=== PATIENT | male | born 1940 | race Caucasian/White ===

== ENCOUNTER 2020-12-05 07:35 | Day surgery (SDC) | payer MEDICARE, OTHER ==
[~2020-12-05 07:35] MED LIST: Bacitracin Oint 1 GM U/D Packet ONE; Bupivacaine 0.5% 50 ML MDV ONE; Lidocaine 1% with EPINEPHrine 1:100,000 50 ML MDV ONE; Propofol 200 MG/20 ML SDV ONE; Sodium Chloride 0.9% 1,000 ML IV SCH; fentaNYL 100 MCG/2 ML SDV ONE
[2020-12-05] MEDS ORDERED: Propofol 200 MG/20 ML SDV ONE ×2 (09:33→10:05)
[2020-12-05] MEDS ORDERED: Ondansetron 4 MG/2 ML SDV ONE (10:13)
[2020-12-05] MEDS ORDERED: Dexamethasone 4 MG/ML SDV ONE (10:13)
--- NOTE | 2020-12-05 11:35 | OR ---
DATE OF PROCEDURE: 12/05/2020 SURGEON: Stanley Sotomayor MD PROCEDURE: Excision of squamous cell carcinoma in situ scalp. 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 POSTOPERATIVE DIAGNOSIS: Squamous cell carcinoma in situ. 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 RISKS: Risks, benefits, alternatives, and limitations including but not limited to infection, bleeding, false positives and false negatives, requirement for reoperation due to final pathological diagnoses and other risks not listed here were explained to the patient and the family and they wished to proceed. The area of excision was marked by myself and the family preoperatively together. The patient did agree on this location also. PROCEDURE IN DETAIL: The patient was placed in supine position. An elliptical type incision was made 5.2 x 2.1 cm. This was marked first, anesthetized with 1% lidocaine and then excised. This was marked on the skin anterior, posterior, left and right, and a single stitch placed anterior, double stitch placed left. The pathology determined there was no residual squamous cell carcinoma on the margins. Therefore, the procedure was terminated. The wound was closed with multiple layers of suture including 2-0 nylon and Vicryl type sutures. This was closed with a combination of vertical mattress sutures, horizontal mattress sutures, and running sutures. The patient tolerated the procedure well. Stanley Sotomayor MD /[id number]
[2020-12-05 12:14] VITALS: BP 131/81; PULSE 76
== END 2020-12-05 12:20 | disposition home or self-care (01) ==
LOC: JP.SDS 07:35
PROVIDERS: ATTEND Surgery
DX: D04.4 Carcinoma in situ of skin of scalp and neck (principal); E11.9 Type 2 diabetes mellitus without complications; E78.00 Pure hypercholesterolemia, unspecified; I48.91 Unspecified atrial fibrillation
CPT/HCPCS: 11626; 88305; J1100; J2405; J2704; J3010; J3490; J7030

== ENCOUNTER 2021-08-12 23:26 | Emergency (ER) | payer MEDICARE, OTHER ==
[2021-08-12 23:52] VITALS: BP 112/65
[2021-08-13 01:11] VITALS: PULSE 72
== END 2021-08-13 00:50 | disposition home or self-care (01) ==
LOC: JP.ED 23:26
DX: S01.552A Open bite of oral cavity, initial encounter (principal); E78.00 Pure hypercholesterolemia, unspecified; I10 Essential (primary) hypertension; K21.9 Gastro-esophageal reflux disease without esophagitis; E10.21 Type 1 diabetes mellitus with diabetic nephropathy; I48.91 Unspecified atrial fibrillation; Z79.01 Long term (current) use of anticoagulants; Z79.82 Long term (current) use of aspirin; Z79.4 Long term (current) use of insulin; Z79.899 Other long term (current) drug therapy; W50.3XXA Accidental bite by another person, initial encounter
CPT/HCPCS: 36415; 85025; 85610; 99282; 99283

== ENCOUNTER 2022-08-12 01:07 | Emergency (ER) | payer MEDICARE ==
[2022-08-12 01:46] VITALS: BP 139/66
[2022-08-12 02:22] LABS: ESTIMATED GFR 33 mL/min (>60)
[2022-08-12 03:26] VITALS: PULSE 78
== END 2022-08-12 03:27 | disposition home or self-care (01) ==
LOC: JP.ED 01:07
DX: U07.1 COVID-19 (principal); R04.2 Hemoptysis; E78.00 Pure hypercholesterolemia, unspecified; K21.9 Gastro-esophageal reflux disease without esophagitis; I10 Essential (primary) hypertension; E11.21 Type 2 diabetes mellitus with diabetic nephropathy; M19.90 Unspecified osteoarthritis, unspecified site; Z86.16 Personal history of COVID-19; Z79.01 Long term (current) use of anticoagulants; Z79.4 Long term (current) use of insulin; Z79.82 Long term (current) use of aspirin; Z79.84 Long term (current) use of oral hypoglycemic drugs; Z79.899 Other long term (current) drug therapy
CPT/HCPCS: 36415; 80053; 83605; 84145; 85025; 85610; 99283; 99284

== ENCOUNTER 2022-10-07 14:56 | Inpatient (IN) | payer MEDICARE ==
[2022-10-07] MEDS ORDERED: Sodium Chloride 0.9% 10 ML Syringe FLUSH PRN (14:58)
[2022-10-07 15:30] LABS: BASOPHILS ABSOLUTE AUTO 0.07 K/uL (0.00-0.10); BASOPHILS PERCENT AUTO 0.4 % (0.1-1.3); EOSINOPHILS ABSOLUTE AUTO 0.04 K/uL (0.00-0.40); EOSINOPHILS PERCENT AUTO 0.2 % (0.0-5.4); HEMATOCRIT 29.3 % (38.4-49.7); HEMOGLOBIN 9.7 g/dL (12.9-16.9); IMMATURE GRAN ABSOLUTE AUTO 0.16 K/uL (0.00-0.23); IMMATURE GRAN PERCENT AUTO 0.9 % (0.0-0.7); LYMPHOCYTES ABSOLUTE AUTO 1.11 K/uL (0.8-3.3); MEAN CORPUSCULAR HEMOGLOBIN 30.4 pg (31.6-35.5); MEAN CORPUSCULAR HGB CONC 33.1 g/dL (31.6-35.5); MEAN CORPUSCULAR VOLUME 91.8 fL (81.4-99.0); MONOCYTES ABSOLUTE AUTO 1.59 K/uL (0.20-0.90); MONOCYTES PERCENT AUTO 8.7 % (3.3-12.6); NEUTROPHILS PERCENT AUTO 83.8 % (40.0-78.1); PLATELET COUNT,PLT 347 K/uL (130-375); RED BLOOD CELL COUNT 3.19 M/uL (4.14-5.76); WHITE BLOOD CELL COUNT,WBC 18.4 K/uL (3.2-11.0)
[2022-10-07 15:49] LABS: INR 2.6
[2022-10-07 15:54] LABS: BLOOD UREA NITROGEN,BUN 32 mg/dL (7-18); CALCIUM 8.8 mg/dL (8.5-10.1); CARBON DIOXIDE,CO2 23 mmol/L (21-32); CHLORIDE,CL 94 mmol/L (100-108); ESTIMATED GFR 33 mL/min (>60); GLUCOSE RANDOM 199 mg/dL (74-106); SODIUM,NA 130 mmol/L (140-148)
[2022-10-07 16:21] LABS: APPEARANCE,URINE SLIGHTLY CLOUDY (CLEAR); BILIRUBIN,URINE NEGATIVE (NEGATIVE); COLOR,URINE YELLOW (YELLOW); GLUCOSE,URINE NEGATIVE (NEGATIVE); KETONES,URINE NEGATIVE (NEGATIVE); LEUKOCYTE ESTERASE,URINE NEGATIVE (NEGATIVE); NITRITE,URINE NEGATIVE (NEGATIVE); OCCULT BLOOD,URINE NEGATIVE (NEGATIVE); PROTEIN,URINE 100 mg/dL (NEGATIVE)
[2022-10-07 16:27] LABS: AMORPHOUS SEDIMENT,URINE NOT SEEN; BACTERIA,URINE FEW; EPITHELIAL CELLS,URINE FEW; MUCUS,URINE RARE; RBC,URINE 0-5 (0-5); WBC,URINE 0-5 (0-5)
[2022-10-07] MEDS ORDERED: Acetaminophen 500 MG Tab PO ONE (16:33)
[2022-10-07] MEDS ORDERED: Piperacillin/Tazobactam 2.25 GM in Sodium Chloride 0.9% 50 ML IV ONE (16:43)
[2022-10-07 16:46] LABS: LACTIC ACID 1.9 mmol/L (0.4-2.0)
[2022-10-07] MEDS ORDERED: Sodium Chloride 0.9% 1,000 ML IV SCH (17:15)
[2022-10-07] MEDS ORDERED: Morphine 2 MG/ML SYRINGE IVPUSH PRN (19:21)
[2022-10-07] MEDS ORDERED: Bisacodyl 5 MG Tab PO PRN (19:21)
[2022-10-07] MEDS ORDERED: oxyCODONE 5 MG Tab PO PRN (19:21)
[2022-10-07] MEDS ORDERED: Ondansetron 4 MG Tab.DIS PO PRN (19:21)
[2022-10-07] MEDS ORDERED: Acetaminophen 325 MG Tab PO PRN (19:21)
[2022-10-07] MEDS ORDERED: Piperacillin/Tazobactam 2.25 GM in Sodium Chloride 0.9% 50 ML IV SCH ×2 (19:30→23:00)
[2022-10-07] MEDS ORDERED: 50% Dextrose in Water 50 ML Syringe IVPUSH PRN (19:34)
[2022-10-07] MEDS ORDERED: Non-Formulary Medication 1 Each (Dimenhydrinate [Dramamine] 50 MG Tablet) PO PRN (19:34)
[2022-10-07] MEDS ORDERED: Glucagon,Human Recombinant 1 MG Vial IM PRN (19:34)
[2022-10-07] MEDS ORDERED: Vancomycin 1 GM SDV IV SCH (20:00)
[2022-10-07] MEDS: Piperacillin/Tazobactam 2.25 GM in Sodium Chloride 0.9% 50 ML IV SCH (20:58)
[2022-10-07] MEDS: Pantoprazole 40 MG Vial IV SCH (21:13)
[2022-10-07] MEDS: Rosuvastatin 10 MG Tab PO SCH (21:13)
[2022-10-07] MEDS: Insulin Glargine,Human Rec. Analog 100 Units/ML 3 ML Pen SUBCUT SCH (21:16)
[2022-10-07] MEDS: Insulin Lispro 100 Unit/ML 3 ML KwikPen SUBCUT SCH (21:17)
[2022-10-08] MEDS: Piperacillin/Tazobactam 2.25 GM in Sodium Chloride 0.9% 50 ML IV SCH (02:17)
[2022-10-08 05:04] LABS: BASOPHILS ABSOLUTE AUTO 0.08 K/uL (0.00-0.10); BASOPHILS PERCENT AUTO 0.5 % (0.1-1.3); EOSINOPHILS ABSOLUTE AUTO 0.32 K/uL (0.00-0.40); EOSINOPHILS PERCENT AUTO 2.1 % (0.0-5.4); HEMATOCRIT 27.2 % (38.4-49.7); HEMOGLOBIN 8.7 g/dL (12.9-16.9); IMMATURE GRAN ABSOLUTE AUTO 0.11 K/uL (0.00-0.23); IMMATURE GRAN PERCENT AUTO 0.7 % (0.0-0.7); LYMPHOCYTES PERCENT AUTO 7.8 % (11.4-47.7); MEAN CORPUSCULAR HEMOGLOBIN 29.8 pg (31.6-35.5); MEAN CORPUSCULAR VOLUME 93.2 fL (81.4-99.0); MONOCYTES ABSOLUTE AUTO 1.25 K/uL (0.20-0.90); MONOCYTES PERCENT AUTO 8.1 % (3.3-12.6); NEUTROPHILS ABSOLUTE AUTO 12.42 K/uL (1.0-7.6); NEUTROPHILS PERCENT AUTO 80.8 % (40.0-78.1); PLATELET COUNT,PLT 315 K/uL (130-375); RED BLOOD CELL COUNT 2.92 M/uL (4.14-5.76); WHITE BLOOD CELL COUNT,WBC 15.4 K/uL (3.2-11.0)
[2022-10-08 05:16] LABS: CALCIUM 8.8 mg/dL (8.5-10.1); CREATININE 1.9 mg/dL (0.8-1.3); EST CRCL DRUG DOSING (CG) 32.33 mL/min; POTASSIUM,K 4.5 mmol/L (3.6-5.2)
[2022-10-08 05:32] LABS: PROTHROMBIN TIME 28.8 sec (9.2-10.6)
[2022-10-08 05:39] LABS: ANION GAP 15.5 mmol/L (5.0-14.0)
[2022-10-08] MEDS ORDERED: Vancomycin 1 GM SDV IV SCH (06:10)
[2022-10-08] MEDS: Insulin Lispro 100 Unit/ML 3 ML KwikPen SUBCUT SCH ×4 (07:34→21:47)
[2022-10-08] MEDS: Piperacillin/Tazobactam/Dext 2.25 GM in Premix Bag 1 BAG IV SCH ×3 (08:45→20:43)
[2022-10-08] MEDS: Potassium Chloride 10 MEQ Cap.ER PO SCH (08:46)
[2022-10-08] MEDS: Aspirin 81 MG Tab.EC PO SCH (08:46)
[2022-10-08] MEDS: Furosemide 40 MG Tab PO SCH (08:46)
[2022-10-08] MEDS: Ferrous Sulfate 325 MG Tab PO SCH (08:46)
[2022-10-08] MEDS: Ascorbic Acid 500 MG Tab PO SCH (08:48)
[2022-10-08] MEDS: Lisinopril 2.5 MG Tab PO SCH (08:48)
[2022-10-08] MEDS: Cholecalciferol (Vitamin D3) 25 MCG Tab PO SCH (08:49)
[2022-10-08] MEDS ORDERED: Warfarin 5 MG Tab PO SCH (09:00)
[2022-10-08] MEDS ORDERED: POTASSIUM GLUCONATE 90 MG PO SCH (09:00)
[2022-10-08] MEDS ORDERED: Warfarin 2.5 MG Tab PO SCH (13:00)
[2022-10-08] MEDS: Warfarin 2.5 MG Tab PO SCH (13:16)
[2022-10-08] MEDS: Rosuvastatin 10 MG Tab PO SCH (20:42)
[2022-10-08] MEDS: Pantoprazole 40 MG Vial IV SCH (20:42)
[2022-10-08] MEDS: Insulin Glargine,Human Rec. Analog 100 Units/ML 3 ML Pen SUBCUT SCH (21:48)
[2022-10-09] MEDS: Piperacillin/Tazobactam/Dext 2.25 GM in Premix Bag 1 BAG IV SCH ×4 (02:22→19:32)
[2022-10-09 05:32] LABS: BASOPHILS ABSOLUTE AUTO 0.07 K/uL (0.00-0.10); BASOPHILS PERCENT AUTO 0.5 % (0.1-1.3); EOSINOPHILS ABSOLUTE AUTO 0.25 K/uL (0.00-0.40); EOSINOPHILS PERCENT AUTO 1.7 % (0.0-5.4); HEMOGLOBIN 9.2 g/dL (12.9-16.9); IMMATURE GRAN ABSOLUTE AUTO 0.11 K/uL (0.00-0.23); IMMATURE GRAN PERCENT AUTO 0.8 % (0.0-0.7); LYMPHOCYTES ABSOLUTE AUTO 1.08 K/uL (0.8-3.3); LYMPHOCYTES PERCENT AUTO 7.5 % (11.4-47.7); MEAN CORPUSCULAR HEMOGLOBIN 30.1 pg (31.6-35.5); MEAN CORPUSCULAR HGB CONC 32.9 g/dL (31.6-35.5); MEAN CORPUSCULAR VOLUME 91.5 fL (81.4-99.0); MONOCYTES ABSOLUTE AUTO 1.14 K/uL (0.20-0.90); MONOCYTES PERCENT AUTO 7.9 % (3.3-12.6); NEUTROPHILS ABSOLUTE AUTO 11.83 K/uL (1.0-7.6); NEUTROPHILS PERCENT AUTO 81.6 % (40.0-78.1); PLATELET COUNT,PLT 373 K/uL (130-375); RED BLOOD CELL COUNT 3.06 M/uL (4.14-5.76); WHITE BLOOD CELL COUNT,WBC 14.5 K/uL (3.2-11.0)
[2022-10-09 05:45] LABS: CALCIUM 8.4 mg/dL (8.5-10.1); CREATININE 2.1 mg/dL (0.8-1.3); EST CRCL DRUG DOSING (CG) 29.25 mL/min; MAGNESIUM 1.8 mg/dL (1.8-2.4); POTASSIUM,K 4.3 mmol/L (3.6-5.2)
[2022-10-09 05:48] LABS: PROTHROMBIN TIME 28.1 sec (9.2-10.6)
[2022-10-09 06:03] LABS: ANION GAP 13.3 mmol/L (5.0-14.0)
[2022-10-09] MEDS: Insulin Lispro 100 Unit/ML 3 ML KwikPen SUBCUT SCH ×4 (08:33→21:09)
[2022-10-09] MEDS: Aspirin 81 MG Tab.EC PO SCH (08:34)
[2022-10-09] MEDS: Ferrous Sulfate 325 MG Tab PO SCH (08:34)
[2022-10-09] MEDS: Potassium Chloride 10 MEQ Cap.ER PO SCH (08:34)
[2022-10-09] MEDS: Cholecalciferol (Vitamin D3) 25 MCG Tab PO SCH (08:34)
[2022-10-09] MEDS: Ascorbic Acid 500 MG Tab PO SCH (08:34)
[2022-10-09] MEDS: Furosemide 40 MG Tab PO SCH (08:34)
[2022-10-09] MEDS: Lisinopril 2.5 MG Tab PO SCH (08:38)
[2022-10-09] MEDS ORDERED: Warfarin 5 MG Tab PO SCH (13:00)
[2022-10-09] MEDS: Warfarin 2.5 MG Tab PO SCH (13:17)
[2022-10-09] MEDS: Docusate Sodium 100 MG Cap PO PRN (19:39)
[2022-10-09] MEDS: Insulin Glargine,Human Rec. Analog 100 Units/ML 3 ML Pen SUBCUT SCH (21:11)
[2022-10-09] MEDS: Rosuvastatin 10 MG Tab PO SCH (21:14)
[2022-10-09] MEDS: Pantoprazole 40 MG Tab.CR PO SCH (21:14)
[2022-10-10] MEDS: Piperacillin/Tazobactam/Dext 2.25 GM in Premix Bag 1 BAG IV SCH ×4 (01:27→19:26)
[2022-10-10 06:58] LABS: CALCIUM 8.2 mg/dL (8.5-10.1); CREATININE 1.8 mg/dL (0.8-1.3); EST CRCL DRUG DOSING (CG) 34.13 mL/min; POTASSIUM,K 4.1 mmol/L (3.6-5.2)
[2022-10-10 07:01] LABS: BASOPHILS ABSOLUTE AUTO 0.06 K/uL (0.00-0.10); BASOPHILS PERCENT AUTO 0.5 % (0.1-1.3); EOSINOPHILS ABSOLUTE AUTO 0.57 K/uL (0.00-0.40); EOSINOPHILS PERCENT AUTO 5.1 % (0.0-5.4); HEMATOCRIT 25.8 % (38.4-49.7); HEMOGLOBIN 8.4 g/dL (12.9-16.9); IMMATURE GRAN ABSOLUTE AUTO 0.27 K/uL (0.00-0.23); IMMATURE GRAN PERCENT AUTO 2.4 % (0.0-0.7); LYMPHOCYTES ABSOLUTE AUTO 1.25 K/uL (0.8-3.3); LYMPHOCYTES PERCENT AUTO 11.2 % (11.4-47.7); MEAN CORPUSCULAR HEMOGLOBIN 29.7 pg (31.6-35.5); MEAN CORPUSCULAR HGB CONC 32.6 g/dL (31.6-35.5); MEAN CORPUSCULAR VOLUME 91.2 fL (81.4-99.0); MONOCYTES ABSOLUTE AUTO 0.95 K/uL (0.20-0.90); MONOCYTES PERCENT AUTO 8.5 % (3.3-12.6); NEUTROPHILS ABSOLUTE AUTO 8.03 K/uL (1.0-7.6); NEUTROPHILS PERCENT AUTO 72.3 % (40.0-78.1); PLATELET COUNT,PLT 347 K/uL (130-375); RED BLOOD CELL COUNT 2.83 M/uL (4.14-5.76); WHITE BLOOD CELL COUNT,WBC 11.1 K/uL (3.2-11.0)
[2022-10-10] MEDS: Insulin Lispro 100 Unit/ML 3 ML KwikPen SUBCUT SCH ×4 (08:21→21:13)
[2022-10-10 08:33] LABS: ANION GAP 14.1 mmol/L (5.0-14.0)
[2022-10-10 08:36] LABS: INR 2.7; PROTHROMBIN TIME 25.8 sec (9.2-10.6)
[2022-10-10] MEDS: Ferrous Sulfate 325 MG Tab PO SCH (08:39)
[2022-10-10] MEDS: Ascorbic Acid 500 MG Tab PO SCH (08:40)
[2022-10-10] MEDS: Furosemide 40 MG Tab PO SCH (08:40)
[2022-10-10] MEDS: Potassium Chloride 10 MEQ Cap.ER PO SCH (08:40)
[2022-10-10] MEDS: Aspirin 81 MG Tab.EC PO SCH (08:40)
[2022-10-10] MEDS: Lisinopril 2.5 MG Tab PO SCH (08:40)
[2022-10-10] MEDS: Cholecalciferol (Vitamin D3) 25 MCG Tab PO SCH (08:40)
[2022-10-10] MEDS: Docusate Sodium 100 MG Cap PO PRN ×2 (10:01→21:15)
[2022-10-10] MEDS: Warfarin 2.5 MG Tab PO SCH (12:33)
[2022-10-10] MEDS ORDERED: Furosemide 40 MG/4 ML VIAL IVPUSH ONE (18:00)
[2022-10-10] MEDS: Insulin Glargine,Human Rec. Analog 100 Units/ML 3 ML Pen SUBCUT SCH (21:13)
[2022-10-10] MEDS: Rosuvastatin 10 MG Tab PO SCH (21:15)
[2022-10-10] MEDS: Pantoprazole 40 MG Tab.CR PO SCH (21:15)
[2022-10-11] MEDS: Piperacillin/Tazobactam/Dext 2.25 GM in Premix Bag 1 BAG IV SCH ×4 (02:31→20:38)
[2022-10-11 05:09] LABS: BASOPHILS ABSOLUTE AUTO 0.06 K/uL (0.00-0.10); BASOPHILS PERCENT AUTO 0.6 % (0.1-1.3); EOSINOPHILS ABSOLUTE AUTO 0.61 K/uL (0.00-0.40); EOSINOPHILS PERCENT AUTO 6.3 % (0.0-5.4); HEMATOCRIT 26.6 % (38.4-49.7); HEMOGLOBIN 8.6 g/dL (12.9-16.9); IMMATURE GRAN ABSOLUTE AUTO 0.11 K/uL (0.00-0.23); IMMATURE GRAN PERCENT AUTO 1.1 % (0.0-0.7); LYMPHOCYTES ABSOLUTE AUTO 1.15 K/uL (0.8-3.3); MEAN CORPUSCULAR HEMOGLOBIN 29.6 pg (31.6-35.5); MEAN CORPUSCULAR HGB CONC 32.3 g/dL (31.6-35.5); MEAN CORPUSCULAR VOLUME 91.4 fL (81.4-99.0); MONOCYTES ABSOLUTE AUTO 0.91 K/uL (0.20-0.90); MONOCYTES PERCENT AUTO 9.5 % (3.3-12.6); NEUTROPHILS ABSOLUTE AUTO 6.78 K/uL (1.0-7.6); NEUTROPHILS PERCENT AUTO 70.5 % (40.0-78.1); PLATELET COUNT,PLT 401 K/uL (130-375); RED BLOOD CELL COUNT 2.91 M/uL (4.14-5.76); WHITE BLOOD CELL COUNT,WBC 9.6 K/uL (3.2-11.0)
[2022-10-11 05:26] LABS: PROTHROMBIN TIME 28.3 sec (9.2-10.6)
[2022-10-11 05:30] LABS: CALCIUM 8.4 mg/dL (8.5-10.1); CREATININE 1.9 mg/dL (0.8-1.3); EST CRCL DRUG DOSING (CG) 32.33 mL/min; POTASSIUM,K 4.3 mmol/L (3.6-5.2); VANCOMYCIN RANDOM 19.2 ug/mL (0.0-50.0)
[2022-10-11 05:38] LABS: ANION GAP 14.3 mmol/L (5.0-14.0)
[2022-10-11] MEDS: Insulin Lispro 100 Unit/ML 3 ML KwikPen SUBCUT SCH ×4 (07:34→21:33)
[2022-10-11] MEDS: Cholecalciferol (Vitamin D3) 25 MCG Tab PO SCH (08:19)
[2022-10-11] MEDS: Aspirin 81 MG Tab.EC PO SCH (08:20)
[2022-10-11] MEDS: Ferrous Sulfate 325 MG Tab PO SCH (08:20)
[2022-10-11] MEDS: Ascorbic Acid 500 MG Tab PO SCH (08:20)
[2022-10-11] MEDS: Lisinopril 2.5 MG Tab PO SCH (08:20)
[2022-10-11] MEDS: Potassium Chloride 10 MEQ Cap.ER PO SCH (08:20)
[2022-10-11] MEDS: Docusate Sodium 100 MG Cap PO PRN (08:27)
[2022-10-11] MEDS ORDERED: Furosemide 20 MG/2 ML VIAL IVPUSH ONE ×2 (08:30→18:00)
[2022-10-11] MEDS ORDERED: Sodium Phosphate,Monobasic/Sodium Phosphate,Dibasic Enema 133 ML Bottle RECTAL PRN (10:19)
[2022-10-11] MEDS ORDERED: Polyethylene Glycol 3350 Powder 17 GM Packet PO ONE (11:00)
[2022-10-11] MEDS ORDERED: Bisacodyl 10 MG Supp RECTAL ONE (11:00)
[2022-10-11] MEDS: Warfarin 2.5 MG Tab PO SCH (13:40)
[2022-10-11] MEDS: Pantoprazole 40 MG Tab.CR PO SCH (20:37)
[2022-10-11] MEDS: Rosuvastatin 10 MG Tab PO SCH (20:38)
[2022-10-11] MEDS: Insulin Glargine,Human Rec. Analog 100 Units/ML 3 ML Pen SUBCUT SCH (21:32)
[2022-10-12] MEDS: Piperacillin/Tazobactam/Dext 2.25 GM in Premix Bag 1 BAG IV SCH ×4 (01:15→20:43)
[2022-10-12 06:04] LABS: CALCIUM 8.4 mg/dL (8.5-10.1); CREATININE 1.9 mg/dL (0.8-1.3); EST CRCL DRUG DOSING (CG) 32.33 mL/min; POTASSIUM,K 3.9 mmol/L (3.6-5.2)
[2022-10-12 06:05] LABS: ANION GAP 12.9 mmol/L (5.0-14.0)
[2022-10-12 06:06] LABS: INR 2.9; PROTHROMBIN TIME 27.1 sec (9.2-10.6)
[2022-10-12] MEDS ORDERED: Furosemide 40 MG/4 ML VIAL IVPUSH ONE ×2 (08:06→18:00)
[2022-10-12] MEDS ORDERED: Furosemide 40 MG, Furosemide 20 MG IV ONE ×2 (08:15)
[2022-10-12] MEDS: Insulin Lispro 100 Unit/ML 3 ML KwikPen SUBCUT SCH ×4 (09:01→20:43)
[2022-10-12] MEDS: Ascorbic Acid 500 MG Tab PO SCH (09:02)
[2022-10-12] MEDS: Ferrous Sulfate 325 MG Tab PO SCH (09:02)
[2022-10-12] MEDS: Potassium Chloride 10 MEQ Cap.ER PO SCH (09:02)
[2022-10-12] MEDS: Aspirin 81 MG Tab.EC PO SCH (09:03)
[2022-10-12] MEDS: Lisinopril 2.5 MG Tab PO SCH (09:03)
[2022-10-12] MEDS: Cholecalciferol (Vitamin D3) 25 MCG Tab PO SCH (09:03)
[2022-10-12] MEDS: Warfarin 2.5 MG Tab PO SCH (13:25)
[2022-10-12] MEDS: Rosuvastatin 10 MG Tab PO SCH (20:45)
[2022-10-12] MEDS: Pantoprazole 40 MG Tab.CR PO SCH (20:46)
[2022-10-12] MEDS: Insulin Glargine,Human Rec. Analog 100 Units/ML 3 ML Pen SUBCUT SCH (20:46)
[2022-10-13] MEDS: Piperacillin/Tazobactam/Dext 2.25 GM in Premix Bag 1 BAG IV SCH ×2 (02:19→08:33)
[2022-10-13 05:56] LABS: CALCIUM 8.5 mg/dL (8.5-10.1); CREATININE 1.9 mg/dL (0.8-1.3); EST CRCL DRUG DOSING (CG) 32.33 mL/min; POTASSIUM,K 4.2 mmol/L (3.6-5.2)
[2022-10-13 05:58] LABS: INR 2.8; PROTHROMBIN TIME 26.9 sec (9.2-10.6)
[2022-10-13 06:05] LABS: ANION GAP 14.2 mmol/L (5.0-14.0)
[2022-10-13] MEDS ORDERED: Furosemide 100 MG/10 ML SDV IVPUSH ONE (08:15)
[2022-10-13] MEDS: Cholecalciferol (Vitamin D3) 25 MCG Tab PO SCH (08:25)
[2022-10-13] MEDS: Potassium Chloride 10 MEQ Cap.ER PO SCH (08:25)
[2022-10-13] MEDS: Lisinopril 2.5 MG Tab PO SCH (08:25)
[2022-10-13] MEDS: Ascorbic Acid 500 MG Tab PO SCH (08:25)
[2022-10-13] MEDS: Ferrous Sulfate 325 MG Tab PO SCH (08:25)
[2022-10-13] MEDS: Aspirin 81 MG Tab.EC PO SCH (08:25)
[2022-10-13] MEDS: Insulin Lispro 100 Unit/ML 3 ML KwikPen SUBCUT SCH ×4 (08:36→21:13)
[2022-10-13] MEDS: Amoxicillin/Clavulanate K 875-125 MG Tab PO SCH ×2 (10:54→20:20)
[2022-10-13] MEDS: Warfarin 2.5 MG Tab PO SCH (12:23)
[2022-10-13] MEDS: Rosuvastatin 10 MG Tab PO SCH (20:21)
[2022-10-13] MEDS: Pantoprazole 40 MG Tab.CR PO SCH (20:21)
[2022-10-13] MEDS: Insulin Glargine,Human Rec. Analog 100 Units/ML 3 ML Pen SUBCUT SCH (21:13)
[2022-10-14 05:19] LABS: INR 2.5; PROTHROMBIN TIME 23.7 sec (9.2-10.6)
[2022-10-14] MEDS: Insulin Lispro 100 Unit/ML 3 ML KwikPen SUBCUT SCH ×2 (07:47→11:37)
[2022-10-14] MEDS: Aspirin 81 MG Tab.EC PO SCH (08:02)
[2022-10-14] MEDS: Potassium Chloride 10 MEQ Cap.ER PO SCH (08:02)
[2022-10-14] MEDS: Cholecalciferol (Vitamin D3) 25 MCG Tab PO SCH (08:03)
[2022-10-14] MEDS: Amoxicillin/Clavulanate K 875-125 MG Tab PO SCH (08:03)
[2022-10-14] MEDS: Ascorbic Acid 500 MG Tab PO SCH (08:03)
[2022-10-14] MEDS: Ferrous Sulfate 325 MG Tab PO SCH (08:03)
[2022-10-14] MEDS: Lisinopril 2.5 MG Tab PO SCH (08:04)
[2022-10-14] MEDS ORDERED: Furosemide 40 MG Tab PO SCH (09:00)
[2022-10-14 11:35] VITALS: BP 133/65; PULSE 80
[2022-10-14] MEDS: Warfarin 2.5 MG Tab PO SCH (12:56)
== END 2022-10-14 14:45 | disposition home or self-care (01) | DRG 637 ==
LOC: JP.ED 14:56 → JP.MS 19:12
PROVIDERS: ADMIT Internal Medicine; ATTEND Hospitalist
DX: E11.628 Type 2 diabetes mellitus with other skin complications (principal); U07.1 COVID-19; L03.115 Cellulitis of right lower limb; L97.419 Non-pressure chronic ulcer of right heel and midfoot with unspecified severity; I48.20 Chronic atrial fibrillation, unspecified; E11.621 Type 2 diabetes mellitus with foot ulcer; R41.82 Altered mental status, unspecified; I48.91 Unspecified atrial fibrillation; E78.5 Hyperlipidemia, unspecified; N18.32 Chronic kidney disease, stage 3b; E11.22 Type 2 diabetes mellitus with diabetic chronic kidney disease; I12.9 Hypertensive chronic kidney disease with stage 1 through stage 4 chronic kidney disease, or unspecified chronic kidney disease; K21.9 Gastro-esophageal reflux disease without esophagitis; E78.00 Pure hypercholesterolemia, unspecified; D63.1 Anemia in chronic kidney disease; Z79.82 Long term (current) use of aspirin; Z79.01 Long term (current) use of anticoagulants; Z79.84 Long term (current) use of oral hypoglycemic drugs; Z79.4 Long term (current) use of insulin; Z98.890 Other specified postprocedural states; Z89.021 Acquired absence of right finger(s); Z86.16 Personal history of COVID-19; Z79.899 Other long term (current) drug therapy
CPT/HCPCS: 36415; 70450 ×2; 71045 ×2; 80048; 81001; 82947; 83605; 84484 ×2; 85025; 85610; 85730; 87040 ×2; 87086; 93005; 96365; 96366; 96368; 99285; A9270; J3370; J7030; J7050; U0002; 80202; 83735; 92610-GN; 93010; 97110-GP; 97116-GP; 97161-GP; 97530-GP; 99223; 99232; 99233; 99238; C9113; J1815; J1815-GY; J1940; J2543; J3490

== ENCOUNTER 2023-01-10 07:27 | Inpatient (IN) | payer MEDICARE ==
[~2023-01-10 07:27] MED LIST changes: -Bacitracin Oint 1 GM U/D Packet ONE; -Bupivacaine 0.5% 50 ML MDV ONE; -Lidocaine 1% with EPINEPHrine 1:100,000 50 ML MDV ONE; +Midazolam 1 MG/ML 2 ML SDV ONE; -Sodium Chloride 0.9% 1,000 ML IV SCH
[2023-01-10] MEDS ORDERED: Scopolamine 1.5 MG Transdermal Patch TOP SCH (08:00)
[2023-01-10] MEDS ORDERED: Naloxone 0.4 MG/ML SDV IVPUSH PRN (08:00)
[2023-01-10] MEDS: Sodium Chloride 0.9% 1,000 ML IV SCH ×2 (08:15→14:18)
[2023-01-10] MEDS ORDERED: metroNIDAZOLE/Normal Saline 500 MG in Premix Bag 1 BAG IV ONE (09:00)
[2023-01-10] MEDS ORDERED: ceFAZolin 2 GM in Premix Bag 1 BAG IV ONE (09:00)
[2023-01-10] MEDS ORDERED: fentaNYL 100 MCG/2 ML SDV ONE (09:46)
[2023-01-10] MEDS ORDERED: Dexamethasone 4 MG/ML SDV ONE (09:57)
[2023-01-10] MEDS ORDERED: Ondansetron 4 MG/2 ML SDV ONE (09:57)
[2023-01-10] MEDS ORDERED: Propofol 200 MG/20 ML SDV ONE (10:44)
[2023-01-10] MEDS ORDERED: Bacitracin Oint 28.35 GM Tube ONE (10:57)
[2023-01-10] MEDS ORDERED: Acetaminophen 325 MG Tab PO PRN (11:14)
[2023-01-10] MEDS ORDERED: Acetaminophen/HYDROcodone 325-10 MG Tab PO PRN (11:14)
[2023-01-10] MEDS ORDERED: Zolpidem 5 MG Tab PO PRN (11:14)
[2023-01-10] MEDS ORDERED: diphenhydrAMINE 50 MG/ML SDV IVPUSH PRN ×2 (11:14→15:15)
[2023-01-10] MEDS ORDERED: Benzocaine/Cetylpyridinium/Menthol Lozenge MUCMEM PRN (11:14)
[2023-01-10] MEDS ORDERED: Ketorolac 30 MG/ML SDV IM SCH (11:15)
[2023-01-10] MEDS: fentaNYL 2,500 MCG in Sodium Chloride 0.9% 200 ML EPIDUR SCH (12:30)
[2023-01-10] MEDS: SCOPOLAMINE PATCH CHECK TOP SCH (12:32)
[2023-01-10] MEDS ORDERED: Naloxone 0.4 MG/ML SDV IV PRN (15:15)
[2023-01-10] MEDS ORDERED: Meperidine PF 100 MG/ML Syringe IM PRN (16:02)
[2023-01-10] MEDS: Insulin Lispro 100 Unit/ML 3 ML KwikPen SUBCUT SCH ×2 (16:55→21:06)
[2023-01-11] MEDS ORDERED: Sodium Chloride 0.9% 250 ML IV SCH (00:15)
[2023-01-11] MEDS ORDERED: Sodium Chloride 0.9% 250 ML IV ONE ×2 (00:33→02:58)
[2023-01-11] MEDS: Sodium Chloride 0.9% 1,000 ML IV SCH ×2 (00:40→04:13)
[2023-01-11 04:24] LABS: BASOPHILS PERCENT AUTO 0.2 % (0.1-1.3); EOSINOPHILS PERCENT AUTO 0.1 % (0.0-5.4); HEMATOCRIT 22.3 % (38.4-49.7); IMMATURE GRAN ABSOLUTE AUTO 0.06 K/uL (0.00-0.23); IMMATURE GRAN PERCENT AUTO 0.6 % (0.0-0.7); LYMPHOCYTES ABSOLUTE AUTO 1.13 K/uL (0.8-3.3); LYMPHOCYTES PERCENT AUTO 10.4 % (11.4-47.7); MEAN CORPUSCULAR HEMOGLOBIN 29.2 pg (31.6-35.5); MEAN CORPUSCULAR HGB CONC 30.9 g/dL (31.6-35.5); MEAN CORPUSCULAR VOLUME 94.5 fL (81.4-99.0); MONOCYTES ABSOLUTE AUTO 1.23 K/uL (0.20-0.90); MONOCYTES PERCENT AUTO 11.3 % (3.3-12.6); NEUTROPHILS ABSOLUTE AUTO 8.41 K/uL (1.0-7.6); NEUTROPHILS PERCENT AUTO 77.4 % (40.0-78.1); PLATELET COUNT,PLT 239 K/uL (130-375); RED BLOOD CELL COUNT 2.36 M/uL (4.14-5.76); WHITE BLOOD CELL COUNT,WBC 10.9 K/uL (3.2-11.0)
[2023-01-11 04:42] LABS: CALCIUM 7.6 mg/dL (8.5-10.1); CREATININE 1.6 mg/dL (0.8-1.3); EST CRCL DRUG DOSING (CG) 38.84 mL/min; POTASSIUM,K 5.1 mmol/L (3.6-5.2)
[2023-01-11 04:47] LABS: ANION GAP 14.1 mmol/L (5.0-14.0); BASOPHILS ABSOLUTE AUTO 0.02 K/uL (0.00-0.10); EOSINOPHILS ABSOLUTE AUTO 0.01 K/uL (0.00-0.40); HEMOGLOBIN 6.9 g/dL (12.9-16.9)
[2023-01-11] MEDS: Insulin Lispro 100 Unit/ML 3 ML KwikPen SUBCUT SCH ×4 (07:31→20:58)
[2023-01-11] MEDS: Pantoprazole 40 MG Tab.CR PO SCH (07:58)
[2023-01-11] MEDS ORDERED: Piperacillin/Tazobactam 3.375 GM in Sodium Chloride 0.9% 50 ML IV SCH (08:00)
[2023-01-11] MEDS: SCOPOLAMINE PATCH CHECK TOP SCH (08:03)
[2023-01-11] MEDS ORDERED: Enoxaparin 40 MG/0.4 ML Syringe SUBCUT SCH (09:00)
[2023-01-11] MEDS: Piperacillin/Tazobactam/Dext 3.375 GM in Premix Bag 1 BAG IV SCH ×3 (09:51→19:32)
[2023-01-11] MEDS: fentaNYL 2,500 MCG in Sodium Chloride 0.9% 200 ML EPIDUR SCH (16:20)
[2023-01-11] MEDS ORDERED: Non-Formulary Medication 1 Each (Metformin [Glucophage Xr] 500 MG Tab.Er) PO SCH (16:30)
[2023-01-11] MEDS: Sodium Chloride 0.9% 1,000 ML with Naloxone 0.4 MG IV SCH ×2 (17:54)
[2023-01-11] MEDS: Rosuvastatin 10 MG Tab PO SCH (20:51)
[2023-01-11] MEDS: Insulin Glargine,Human Rec. Analog 100 Units/ML 3 ML Pen SUBCUT SCH (20:58)
[2023-01-11] MEDS ORDERED: Dimethicone 20%/Zinc Oxide 25% 56 GM Spray Bottle TOP PRN (21:53)
[2023-01-12] MEDS: Piperacillin/Tazobactam/Dext 3.375 GM in Premix Bag 1 BAG IV SCH ×4 (01:19→20:17)
[2023-01-12 04:51] LABS: BASOPHILS ABSOLUTE AUTO 0.05 K/uL (0.00-0.10); BASOPHILS PERCENT AUTO 0.6 % (0.1-1.3); EOSINOPHILS ABSOLUTE AUTO 0.21 K/uL (0.00-0.40); EOSINOPHILS PERCENT AUTO 2.4 % (0.0-5.4); IMMATURE GRAN ABSOLUTE AUTO 0.06 K/uL (0.00-0.23); IMMATURE GRAN PERCENT AUTO 0.7 % (0.0-0.7); LYMPHOCYTES ABSOLUTE AUTO 1.85 K/uL (0.8-3.3); LYMPHOCYTES PERCENT AUTO 21.2 % (11.4-47.7); MEAN CORPUSCULAR HEMOGLOBIN 29.3 pg (31.6-35.5); MEAN CORPUSCULAR VOLUME 91.6 fL (81.4-99.0); MONOCYTES ABSOLUTE AUTO 1.26 K/uL (0.20-0.90); MONOCYTES PERCENT AUTO 14.5 % (3.3-12.6); NEUTROPHILS ABSOLUTE AUTO 5.28 K/uL (1.0-7.6); NEUTROPHILS PERCENT AUTO 60.6 % (40.0-78.1); PLATELET COUNT,PLT 192 K/uL (130-375); RED BLOOD CELL COUNT 2.73 M/uL (4.14-5.76); WHITE BLOOD CELL COUNT,WBC 8.7 K/uL (3.2-11.0)
[2023-01-12 05:07] LABS: CALCIUM 7.7 mg/dL (8.5-10.1); CREATININE 1.9 mg/dL (0.8-1.3); EST CRCL DRUG DOSING (CG) 32.55 mL/min; POTASSIUM,K 4.8 mmol/L (3.6-5.2)
[2023-01-12 05:11] LABS: ANION GAP 11.8 mmol/L (5.0-14.0)
[2023-01-12] MEDS: Sodium Chloride 0.9% 1,000 ML with Naloxone 0.4 MG IV SCH ×2 (08:57)
[2023-01-12] MEDS: Insulin Lispro 100 Unit/ML 3 ML KwikPen SUBCUT SCH ×4 (09:04→21:43)
[2023-01-12] MEDS: Aspirin 81 MG Tab.EC PO SCH (09:06)
[2023-01-12] MEDS: Pantoprazole 40 MG Tab.CR PO SCH (09:06)
[2023-01-12] MEDS: SCOPOLAMINE PATCH CHECK TOP SCH (09:36)
[2023-01-12] MEDS ORDERED: Furosemide 40 MG Tab PO ONE (12:00)
[2023-01-12] MEDS: Bisacodyl 5 MG Tab PO PRN (16:50)
[2023-01-12] MEDS: Docusate Sodium 100 MG Cap PO PRN (16:50)
[2023-01-12] MEDS: NALOXONE IV SCH ×2 (18:46)
[2023-01-12] MEDS: SODIUM CHLORIDE 0.9% IV SCH ×2 (18:46)
[2023-01-12 19:37] LABS: BASOPHILS ABSOLUTE AUTO 0.05 K/uL (0.00-0.10); BASOPHILS PERCENT AUTO 0.4 % (0.1-1.3); EOSINOPHILS ABSOLUTE AUTO 0.17 K/uL (0.00-0.40); EOSINOPHILS PERCENT AUTO 1.3 % (0.0-5.4); HEMATOCRIT 29.8 % (38.4-49.7); HEMOGLOBIN 9.7 g/dL (12.9-16.9); IMMATURE GRAN ABSOLUTE AUTO 0.06 K/uL (0.00-0.23); IMMATURE GRAN PERCENT AUTO 0.5 % (0.0-0.7); LYMPHOCYTES ABSOLUTE AUTO 0.98 K/uL (0.8-3.3); LYMPHOCYTES PERCENT AUTO 7.6 % (11.4-47.7); MEAN CORPUSCULAR HEMOGLOBIN 29.3 pg (31.6-35.5); MEAN CORPUSCULAR HGB CONC 32.6 g/dL (31.6-35.5); MONOCYTES ABSOLUTE AUTO 0.91 K/uL (0.20-0.90); MONOCYTES PERCENT AUTO 7.1 % (3.3-12.6); NEUTROPHILS ABSOLUTE AUTO 10.65 K/uL (1.0-7.6); NEUTROPHILS PERCENT AUTO 83.1 % (40.0-78.1); PLATELET COUNT,PLT 216 K/uL (130-375); RED BLOOD CELL COUNT 3.31 M/uL (4.14-5.76); WHITE BLOOD CELL COUNT,WBC 12.8 K/uL (3.2-11.0)
[2023-01-12 19:54] LABS: APPEARANCE,URINE CLOUDY (CLEAR); BILIRUBIN,URINE NEGATIVE (NEGATIVE); COLOR,URINE YELLOW (YELLOW); GLUCOSE,URINE NEGATIVE (NEGATIVE); KETONES,URINE NEGATIVE (NEGATIVE); LEUKOCYTE ESTERASE,URINE SMALL (NEGATIVE); NITRITE,URINE NEGATIVE (NEGATIVE); OCCULT BLOOD,URINE LARGE (NEGATIVE); PH,URINE 5.5 (5.0-8.0); PROTEIN,URINE 100 mg/dL (NEGATIVE); UROBILINOGEN,URINE 0.2 EU/dL (0.2-1.0)
[2023-01-12 20:02] LABS: AMORPHOUS SEDIMENT,URINE MODERATE; BACTERIA,URINE MODERATE; EPITHELIAL CELLS,URINE FEW; MUCUS,URINE FEW; RBC,URINE 40-50 (0-5)
[2023-01-12] MEDS: Linezolid 600 MG in Premix Bag 1 BAG IV SCH (21:05)
[2023-01-12] MEDS: Insulin Glargine,Human Rec. Analog 100 Units/ML 3 ML Pen SUBCUT SCH (21:44)
[2023-01-12] MEDS: Rosuvastatin 10 MG Tab PO SCH (21:46)
[2023-01-12] MEDS: Tamsulosin 0.4 MG Cap.ER PO SCH (21:46)
[2023-01-12] MEDS: Levofloxacin/Dextrose 5%-Water 750 MG in Premix Bag 1 BAG IV SCH (22:44)
[2023-01-13] MEDS: fentaNYL 2,500 MCG in Sodium Chloride 0.9% 200 ML EPIDUR SCH (00:44)
[2023-01-13] MEDS: Piperacillin/Tazobactam/Dext 3.375 GM in Premix Bag 1 BAG IV SCH ×4 (01:35→20:27)
[2023-01-13 04:52] LABS: BASOPHILS ABSOLUTE AUTO 0.06 K/uL (0.00-0.10); BASOPHILS PERCENT AUTO 0.4 % (0.1-1.3); EOSINOPHILS PERCENT AUTO 0.7 % (0.0-5.4); HEMATOCRIT 27.3 % (38.4-49.7); HEMOGLOBIN 8.9 g/dL (12.9-16.9); IMMATURE GRAN ABSOLUTE AUTO 0.09 K/uL (0.00-0.23); IMMATURE GRAN PERCENT AUTO 0.6 % (0.0-0.7); LYMPHOCYTES ABSOLUTE AUTO 1.33 K/uL (0.8-3.3); LYMPHOCYTES PERCENT AUTO 9.1 % (11.4-47.7); MEAN CORPUSCULAR HEMOGLOBIN 29.4 pg (31.6-35.5); MEAN CORPUSCULAR HGB CONC 32.6 g/dL (31.6-35.5); MEAN CORPUSCULAR VOLUME 90.1 fL (81.4-99.0); MONOCYTES ABSOLUTE AUTO 1.23 K/uL (0.20-0.90); MONOCYTES PERCENT AUTO 8.4 % (3.3-12.6); NEUTROPHILS ABSOLUTE AUTO 11.84 K/uL (1.0-7.6); NEUTROPHILS PERCENT AUTO 80.8 % (40.0-78.1); PLATELET COUNT,PLT 181 K/uL (130-375); RED BLOOD CELL COUNT 3.03 M/uL (4.14-5.76); WHITE BLOOD CELL COUNT,WBC 14.7 K/uL (3.2-11.0)
[2023-01-13 05:22] LABS: A/G RATIO 0.5 (1.2-2.2); ALANINE AMINOTRANSFERASE,ALT 30 U/L (12-78); ALBUMIN 2.2 g/dL (3.4-5.0); ALKALINE PHOSPHATASE 104 U/L (46-116); ASPARTATE AMNIOTRANSFERASE,AST 42 U/L (15-37); BILIRUBIN TOTAL 0.7 mg/dL (0.2-1.0); BLOOD UREA NITROGEN,BUN 37 mg/dL (7-18); CALCIUM 7.6 mg/dL (8.5-10.1); CARBON DIOXIDE,CO2 21 mmol/L (21-32); CHLORIDE,CL 101 mmol/L (100-108); CREATININE 1.8 mg/dL (0.8-1.3); EST CRCL DRUG DOSING (CG) 34.36 mL/min; ESTIMATED GFR 37 mL/min (>60); GLUCOSE RANDOM 150 mg/dL (74-106); MAGNESIUM 1.6 mg/dL (1.8-2.4); PHOSPHORUS 3.6 mg/dL (2.5-4.9); POTASSIUM,K 4.5 mmol/L (3.6-5.2); PRO B-TYPE NATRIUR PEPT,BNPPRO 6491 pg/mL (5-450); PROTEIN TOTAL,TP 6.4 g/dL (6.4-8.2); SODIUM,NA 131 mmol/L (140-148)
[2023-01-13 05:28] LABS: ANION GAP 13.5 mmol/L (5.0-14.0)
[2023-01-13] MEDS: Insulin Lispro 100 Unit/ML 3 ML KwikPen SUBCUT SCH ×4 (07:42→21:02)
[2023-01-13] MEDS: Pantoprazole 40 MG Tab.CR PO SCH (07:52)
[2023-01-13] MEDS ORDERED: fentaNYL/Normal Saline 600 MCG/30 ML PCA Vial IV PRN (09:00)
[2023-01-13] MEDS ORDERED: Naloxone 0.4 MG/ML SDV IV PRN (09:00)
[2023-01-13] MEDS ORDERED: Lactated Ringers 1,000 ML IV SCH (09:00)
[2023-01-13] MEDS: Linezolid 600 MG in Premix Bag 1 BAG IV SCH ×2 (09:33→20:18)
[2023-01-13] MEDS: Ondansetron 4 MG/2 ML SDV IVPUSH PRN (09:45)
[2023-01-13] MEDS ORDERED: Furosemide 20 MG/2 ML VIAL IVPUSH ONE (10:00)
[2023-01-13] MEDS: SCOPOLAMINE PATCH CHECK TOP SCH (10:01)
[2023-01-13] MEDS: Furosemide 40 MG Tab PO SCH (10:01)
[2023-01-13] MEDS: Aspirin 81 MG Tab.EC PO SCH (10:01)
[2023-01-13] MEDS: Fluconazole/Normal Saline 200 MG in Premix Bag 1 BAG IV SCH (10:03)
[2023-01-13] MEDS: Azithromycin 125 MG in Sodium Chloride 0.9% 100 ML IV SCH ×2 (11:24→23:26)
[2023-01-13] MEDS: Scopolamine 1.5 MG Transdermal Patch TRDERM SCH (11:27)
[2023-01-13] MEDS: SODIUM CHLORIDE 0.9% IV SCH ×2 (13:17)
[2023-01-13] MEDS: NALOXONE IV SCH ×2 (13:17)
[2023-01-13] MEDS: Rosuvastatin 10 MG Tab PO SCH (20:30)
[2023-01-13] MEDS: Tamsulosin 0.4 MG Cap.ER PO SCH (20:30)
[2023-01-13] MEDS: Insulin Glargine,Human Rec. Analog 100 Units/ML 3 ML Pen SUBCUT SCH (21:02)
[2023-01-14] MEDS: Piperacillin/Tazobactam/Dext 3.375 GM in Premix Bag 1 BAG IV SCH ×4 (01:53→20:42)
[2023-01-14 04:31] LABS: BASOPHILS ABSOLUTE AUTO 0.03 K/uL (0.00-0.10); BASOPHILS PERCENT AUTO 0.3 % (0.1-1.3); EOSINOPHILS ABSOLUTE AUTO 0.13 K/uL (0.00-0.40); EOSINOPHILS PERCENT AUTO 1.5 % (0.0-5.4); HEMATOCRIT 26.8 % (38.4-49.7); HEMOGLOBIN 8.7 g/dL (12.9-16.9); IMMATURE GRAN ABSOLUTE AUTO 0.04 K/uL (0.00-0.23); IMMATURE GRAN PERCENT AUTO 0.5 % (0.0-0.7); LYMPHOCYTES ABSOLUTE AUTO 1.01 K/uL (0.8-3.3); LYMPHOCYTES PERCENT AUTO 11.4 % (11.4-47.7); MEAN CORPUSCULAR HEMOGLOBIN 28.8 pg (31.6-35.5); MEAN CORPUSCULAR HGB CONC 32.5 g/dL (31.6-35.5); MEAN CORPUSCULAR VOLUME 88.7 fL (81.4-99.0); MONOCYTES ABSOLUTE AUTO 0.91 K/uL (0.20-0.90); MONOCYTES PERCENT AUTO 10.3 % (3.3-12.6); NEUTROPHILS ABSOLUTE AUTO 6.72 K/uL (1.0-7.6); PLATELET COUNT,PLT 181 K/uL (130-375); RED BLOOD CELL COUNT 3.02 M/uL (4.14-5.76); WHITE BLOOD CELL COUNT,WBC 8.8 K/uL (3.2-11.0)
[2023-01-14 04:56] LABS: A/G RATIO 0.5 (1.2-2.2); ALANINE AMINOTRANSFERASE,ALT 20 U/L (12-78); ALBUMIN 2.1 g/dL (3.4-5.0); ALKALINE PHOSPHATASE 86 U/L (46-116); ASPARTATE AMNIOTRANSFERASE,AST 24 U/L (15-37); BILIRUBIN TOTAL 0.4 mg/dL (0.2-1.0); BLOOD UREA NITROGEN,BUN 33 mg/dL (7-18); CALCIUM 8.1 mg/dL (8.5-10.1); CARBON DIOXIDE,CO2 23 mmol/L (21-32); CHLORIDE,CL 101 mmol/L (100-108); CREATININE 1.6 mg/dL (0.8-1.3); EST CRCL DRUG DOSING (CG) 38.65 mL/min; ESTIMATED GFR 42 mL/min (>60); GLUCOSE RANDOM 122 mg/dL (74-106); MAGNESIUM 1.6 mg/dL (1.8-2.4); PHOSPHORUS 3.8 mg/dL (2.5-4.9); POTASSIUM,K 3.9 mmol/L (3.6-5.2); PRO B-TYPE NATRIUR PEPT,BNPPRO 7104 pg/mL (5-450); PROTEIN TOTAL,TP 6.2 g/dL (6.4-8.2); SODIUM,NA 133 mmol/L (140-148)
[2023-01-14 05:08] LABS: ANION GAP 12.9 mmol/L (5.0-14.0)
[2023-01-14] MEDS: Pantoprazole 40 MG Tab.CR PO SCH (07:28)
[2023-01-14] MEDS: Bisacodyl 5 MG Tab PO PRN (07:43)
[2023-01-14] MEDS: Insulin Lispro 100 Unit/ML 3 ML KwikPen SUBCUT SCH ×4 (08:12→21:25)
[2023-01-14] MEDS: Linezolid 600 MG in Premix Bag 1 BAG IV SCH ×2 (08:47→19:38)
[2023-01-14] MEDS: Aspirin 81 MG Tab.EC PO SCH (08:50)
[2023-01-14] MEDS: Furosemide 40 MG Tab PO SCH (08:50)
[2023-01-14] MEDS: SCOPOLAMINE PATCH CHECK TOP SCH (08:52)
[2023-01-14] MEDS: Fluconazole/Normal Saline 200 MG in Premix Bag 1 BAG IV SCH (10:04)
[2023-01-14] MEDS ORDERED: Acetaminophen/HYDROcodone 325-5 MG Tab PO PRN (10:17)
[2023-01-14] MEDS: Azithromycin 125 MG in Sodium Chloride 0.9% 100 ML IV SCH ×2 (11:17→23:00)
[2023-01-14] MEDS: Magnesium Hydroxide 400 MG/5 ML Susp 30 ML Cup PO SCH ×2 (11:27→20:44)
[2023-01-14] MEDS ORDERED: Lactulose Soln 10 GM/15 ML 15 ML UD Cup PO ONE (16:00)
[2023-01-14] MEDS: Rosuvastatin 10 MG Tab PO SCH (20:44)
[2023-01-14] MEDS: Tamsulosin 0.4 MG Cap.ER PO SCH (20:44)
[2023-01-14] MEDS: Levofloxacin/Dextrose 5%-Water 750 MG in Premix Bag 1 BAG IV SCH (21:24)
[2023-01-14] MEDS: Insulin Glargine,Human Rec. Analog 100 Units/ML 3 ML Pen SUBCUT SCH (21:25)
[2023-01-14] MEDS: Ondansetron 4 MG/2 ML SDV IVPUSH PRN (23:38)
[2023-01-15] MEDS: Piperacillin/Tazobactam/Dext 3.375 GM in Premix Bag 1 BAG IV SCH ×2 (02:51→08:17)
[2023-01-15] MEDS: Ondansetron 4 MG/2 ML SDV IVPUSH PRN ×2 (04:29→10:26)
[2023-01-15 04:35] LABS: HEMATOCRIT 27.7 % (38.4-49.7); HEMOGLOBIN 8.9 g/dL (12.9-16.9); MEAN CORPUSCULAR HEMOGLOBIN 28.6 pg (31.6-35.5); MEAN CORPUSCULAR HGB CONC 32.1 g/dL (31.6-35.5); MEAN CORPUSCULAR VOLUME 89.1 fL (81.4-99.0); RED BLOOD CELL COUNT 3.11 M/uL (4.14-5.76); WHITE BLOOD CELL COUNT,WBC 7.6 K/uL (3.2-11.0)
[2023-01-15 04:54] LABS: CALCIUM 8.3 mg/dL (8.5-10.1); CREATININE 1.7 mg/dL (0.8-1.3); EST CRCL DRUG DOSING (CG) 36.38 mL/min
[2023-01-15] MEDS: Insulin Lispro 100 Unit/ML 3 ML KwikPen SUBCUT SCH ×4 (08:12→21:03)
[2023-01-15] MEDS: Pantoprazole 40 MG Tab.CR PO SCH (08:17)
[2023-01-15] MEDS ORDERED: Piperacillin/Tazobactam/Dext 2.25 GM in Premix Bag 1 BAG IV SCH (09:00)
[2023-01-15] MEDS: Linezolid 600 MG in Premix Bag 1 BAG IV SCH ×2 (09:05→20:56)
[2023-01-15] MEDS: Furosemide 40 MG Tab PO SCH (09:05)
[2023-01-15] MEDS: SCOPOLAMINE PATCH CHECK TOP SCH (09:05)
[2023-01-15] MEDS: Magnesium Hydroxide 400 MG/5 ML Susp 30 ML Cup PO SCH ×2 (09:05→20:54)
[2023-01-15] MEDS: Aspirin 81 MG Tab.EC PO SCH (09:06)
[2023-01-15] MEDS: Bisacodyl 5 MG Tab PO PRN (09:11)
[2023-01-15] MEDS: VERIFY SCOP PATCH SCH (10:01)
[2023-01-15] MEDS: Fluconazole/Normal Saline 200 MG in Premix Bag 1 BAG IV SCH (10:16)
[2023-01-15] MEDS: Azithromycin 125 MG in Sodium Chloride 0.9% 100 ML IV SCH ×2 (11:35→23:01)
[2023-01-15] MEDS: Piperacillin/Tazobactam/Dext 2.25 GM in Premix Bag 1 BAG IV SCH ×2 (13:42→20:52)
[2023-01-15] MEDS ORDERED: Bisacodyl 10 MG Supp RECTAL PRN (19:35)
[2023-01-15] MEDS ORDERED: Sodium Phosphate,Monobasic/Sodium Phosphate,Dibasic Enema 133 ML Bottle RECTAL PRN (19:36)
[2023-01-15] MEDS: Tamsulosin 0.4 MG Cap.ER PO SCH (20:55)
[2023-01-15] MEDS: Rosuvastatin 10 MG Tab PO SCH (20:55)
[2023-01-15] MEDS: Insulin Glargine,Human Rec. Analog 100 Units/ML 3 ML Pen SUBCUT SCH (21:01)
[2023-01-16] MEDS: Piperacillin/Tazobactam/Dext 2.25 GM in Premix Bag 1 BAG IV SCH ×2 (03:14→07:22)
[2023-01-16 05:36] LABS: HEMATOCRIT 28.7 % (38.4-49.7); HEMOGLOBIN 9.3 g/dL (12.9-16.9); MEAN CORPUSCULAR HEMOGLOBIN 29.1 pg (31.6-35.5); MEAN CORPUSCULAR HGB CONC 32.4 g/dL (31.6-35.5); MEAN CORPUSCULAR VOLUME 89.7 fL (81.4-99.0); RED BLOOD CELL COUNT 3.2 M/uL (4.14-5.76); WHITE BLOOD CELL COUNT,WBC 6.7 K/uL (3.2-11.0)
[2023-01-16 06:04] LABS: A/G RATIO 0.4 (1.2-2.2); ALANINE AMINOTRANSFERASE,ALT 33 U/L (12-78); ALBUMIN 2.2 g/dL (3.4-5.0); ALKALINE PHOSPHATASE 107 U/L (46-116); ASPARTATE AMNIOTRANSFERASE,AST 48 U/L (15-37); BILIRUBIN TOTAL 0.4 mg/dL (0.2-1.0); BLOOD UREA NITROGEN,BUN 27 mg/dL (7-18); CALCIUM 8.4 mg/dL (8.5-10.1); CARBON DIOXIDE,CO2 25 mmol/L (21-32); CHLORIDE,CL 100 mmol/L (100-108); CREATININE 1.6 mg/dL (0.8-1.3); EST CRCL DRUG DOSING (CG) 38.65 mL/min; ESTIMATED GFR 42 mL/min (>60); GLUCOSE RANDOM 150 mg/dL (74-106); MAGNESIUM 2.3 mg/dL (1.8-2.4); POTASSIUM,K 3.7 mmol/L (3.6-5.2); PRO B-TYPE NATRIUR PEPT,BNPPRO 6145 pg/mL (5-450); PROTEIN TOTAL,TP 7.4 g/dL (6.4-8.2); SODIUM,NA 135 mmol/L (140-148)
[2023-01-16 06:17] LABS: ANION GAP 13.7 mmol/L (5.0-14.0)
[2023-01-16] MEDS: Pantoprazole 40 MG Tab.CR PO SCH (07:22)
[2023-01-16] MEDS ORDERED: Bisacodyl 10 MG Supp RECTAL PRN (08:01)
[2023-01-16] MEDS: Insulin Lispro 100 Unit/ML 3 ML KwikPen SUBCUT SCH ×4 (08:16→21:05)
[2023-01-16] MEDS: Linezolid 600 MG in Premix Bag 1 BAG IV SCH ×2 (08:23→21:09)
[2023-01-16] MEDS ORDERED: Furosemide 20 MG/2 ML VIAL IVPUSH ONE (08:30)
[2023-01-16] MEDS ORDERED: Potassium Chloride 20 MEQ Tab.ER PO ONE (08:30)
[2023-01-16] MEDS: Aspirin 81 MG Tab.EC PO SCH (08:36)
[2023-01-16] MEDS: Furosemide 40 MG Tab PO SCH (08:36)
[2023-01-16] MEDS: Docusate Sodium 100 MG Cap PO PRN (08:57)
[2023-01-16 09:40] LABS: INR 1.2; PROTHROMBIN TIME 12.2 sec (9.2-10.6)
[2023-01-16] MEDS: Magnesium Hydroxide 400 MG/5 ML Susp 30 ML Cup PO SCH ×2 (10:26→21:11)
[2023-01-16] MEDS: VERIFY SCOP PATCH SCH (10:27)
[2023-01-16] MEDS: Scopolamine 1.5 MG Transdermal Patch TRDERM SCH (10:33)
[2023-01-16] MEDS: Azithromycin 125 MG in Sodium Chloride 0.9% 100 ML IV SCH ×2 (11:00→23:53)
[2023-01-16] MEDS ORDERED: Warfarin 5 MG Tab PO ONE (11:00)
[2023-01-16] MEDS: Insulin Glargine,Human Rec. Analog 100 Units/ML 3 ML Pen SUBCUT SCH (21:06)
[2023-01-16] MEDS: Rosuvastatin 10 MG Tab PO SCH (21:11)
[2023-01-16] MEDS: Tamsulosin 0.4 MG Cap.ER PO SCH (21:11)
[2023-01-16] MEDS: Levofloxacin/Dextrose 5%-Water 750 MG in Premix Bag 1 BAG IV SCH (22:10)
[2023-01-17 04:42] LABS: HEMATOCRIT 27.7 % (38.4-49.7); HEMOGLOBIN 8.8 g/dL (12.9-16.9); MEAN CORPUSCULAR HEMOGLOBIN 28.6 pg (31.6-35.5); MEAN CORPUSCULAR HGB CONC 31.8 g/dL (31.6-35.5); MEAN CORPUSCULAR VOLUME 89.9 fL (81.4-99.0); RED BLOOD CELL COUNT 3.08 M/uL (4.14-5.76); WHITE BLOOD CELL COUNT,WBC 5.9 K/uL (3.2-11.0)
[2023-01-17 05:07] LABS: INR 1.3; PROTHROMBIN TIME 13.1 sec (9.2-10.6)
[2023-01-17 05:15] LABS: A/G RATIO 0.5 (1.2-2.2); ALANINE AMINOTRANSFERASE,ALT 31 U/L (12-78); ALBUMIN 2.1 g/dL (3.4-5.0); ALKALINE PHOSPHATASE 97 U/L (46-116); ASPARTATE AMNIOTRANSFERASE,AST 31 U/L (15-37); BILIRUBIN TOTAL 0.3 mg/dL (0.2-1.0); BLOOD UREA NITROGEN,BUN 25 mg/dL (7-18); CALCIUM 8.3 mg/dL (8.5-10.1); CARBON DIOXIDE,CO2 30 mmol/L (21-32); CHLORIDE,CL 97 mmol/L (100-108); CREATININE 1.4 mg/dL (0.8-1.3); EST CRCL DRUG DOSING (CG) 44.18 mL/min; ESTIMATED GFR 50 mL/min (>60); GLUCOSE RANDOM 182 mg/dL (74-106); MAGNESIUM 2.2 mg/dL (1.8-2.4); POTASSIUM,K 3.8 mmol/L (3.6-5.2); PRO B-TYPE NATRIUR PEPT,BNPPRO 7323 pg/mL (5-450); PROTEIN TOTAL,TP 6.4 g/dL (6.4-8.2); SODIUM,NA 133 mmol/L (140-148)
[2023-01-17 05:16] LABS: ANION GAP 9.8 mmol/L (5.0-14.0)
[2023-01-17] MEDS: Insulin Lispro 100 Unit/ML 3 ML KwikPen SUBCUT SCH ×4 (07:30→20:58)
[2023-01-17] MEDS: Pantoprazole 40 MG Tab.CR PO SCH (07:31)
[2023-01-17] MEDS: Aspirin 81 MG Tab.EC PO SCH (08:07)
[2023-01-17] MEDS: Furosemide 40 MG Tab PO SCH (08:07)
[2023-01-17] MEDS: VERIFY SCOP PATCH SCH (08:08)
[2023-01-17] MEDS ORDERED: Warfarin 2.5 MG Tab PO ONE (09:00)
[2023-01-17] MEDS: Lisinopril 2.5 MG Tab PO SCH (10:58)
[2023-01-17] MEDS ORDERED: Furosemide 40 MG/4 ML VIAL IVPUSH ONE ×2 (11:00→16:30)
[2023-01-17] MEDS: Rosuvastatin 10 MG Tab PO SCH (20:38)
[2023-01-17] MEDS: Tamsulosin 0.4 MG Cap.ER PO SCH (20:38)
[2023-01-17] MEDS: Insulin Glargine,Human Rec. Analog 100 Units/ML 3 ML Pen SUBCUT SCH (20:58)
[2023-01-18 05:08] LABS: HEMATOCRIT 29.7 % (38.4-49.7); HEMOGLOBIN 9.7 g/dL (12.9-16.9); MEAN CORPUSCULAR HEMOGLOBIN 29.3 pg (31.6-35.5); MEAN CORPUSCULAR HGB CONC 32.7 g/dL (31.6-35.5); MEAN CORPUSCULAR VOLUME 89.7 fL (81.4-99.0); RED BLOOD CELL COUNT 3.31 M/uL (4.14-5.76); WHITE BLOOD CELL COUNT,WBC 6.8 K/uL (3.2-11.0)
[2023-01-18 05:27] LABS: INR 1.2; PROTHROMBIN TIME 12.3 sec (9.2-10.6)
[2023-01-18 05:38] LABS: A/G RATIO 0.5 (1.2-2.2); ALANINE AMINOTRANSFERASE,ALT 36 U/L (12-78); ALBUMIN 2.2 g/dL (3.4-5.0); ALKALINE PHOSPHATASE 98 U/L (46-116); ANION GAP 9.2 mmol/L (5.0-14.0); ASPARTATE AMNIOTRANSFERASE,AST 44 U/L (15-37); BILIRUBIN TOTAL 0.3 mg/dL (0.2-1.0); BLOOD UREA NITROGEN,BUN 35 mg/dL (7-18); CALCIUM 8.2 mg/dL (8.5-10.1); CARBON DIOXIDE,CO2 29 mmol/L (21-32); CHLORIDE,CL 99 mmol/L (100-108); CREATININE 1.7 mg/dL (0.8-1.3); EST CRCL DRUG DOSING (CG) 36.38 mL/min; ESTIMATED GFR 39 mL/min (>60); GLUCOSE RANDOM 166 mg/dL (74-106); PHOSPHORUS 3.4 mg/dL (2.5-4.9); POTASSIUM,K 4.2 mmol/L (3.6-5.2); PRO B-TYPE NATRIUR PEPT,BNPPRO 7181 pg/mL (5-450); PROTEIN TOTAL,TP 6.3 g/dL (6.4-8.2); SODIUM,NA 133 mmol/L (140-148)
[2023-01-18] MEDS: Insulin Lispro 100 Unit/ML 3 ML KwikPen SUBCUT SCH ×2 (07:54→11:25)
[2023-01-18] MEDS: Pantoprazole 40 MG Tab.CR PO SCH (07:54)
[2023-01-18] MEDS: Lisinopril 2.5 MG Tab PO SCH (07:59)
[2023-01-18] MEDS: Furosemide 40 MG Tab PO SCH (07:59)
[2023-01-18] MEDS: VERIFY SCOP PATCH SCH (08:00)
[2023-01-18] MEDS: Aspirin 81 MG Tab.EC PO SCH (08:00)
[2023-01-18] MEDS ORDERED: Warfarin 5 MG Tab PO ONE (09:00)
[2023-01-18 10:42] VITALS: BP 141/61; PULSE 95
== END 2023-01-18 14:30 | DRG 616 ==
LOC: JP.SDS 07:27 → JP.ICU 11:15 → JP.MS 18:00
PROVIDERS: ADMIT Surgery; ATTEND Surgery
PROC: 0Y6H0Z2 Detachment at Right Lower Leg, Mid, Open Approach (ICD-10-PCS; principal; 2023-01-10)
DX: E11.69 Type 2 diabetes mellitus with other specified complication (principal); J18.9 Pneumonia, unspecified organism; M86.671 Other chronic osteomyelitis, right ankle and foot; L03.115 Cellulitis of right lower limb; K56.7 Ileus, unspecified; M86.8X7 Other osteomyelitis, ankle and foot; D68.59 Other primary thrombophilia; I48.20 Chronic atrial fibrillation, unspecified; I12.9 Hypertensive chronic kidney disease with stage 1 through stage 4 chronic kidney disease, or unspecified chronic kidney disease; D63.1 Anemia in chronic kidney disease; D50.0 Iron deficiency anemia secondary to blood loss (chronic); E78.5 Hyperlipidemia, unspecified; E11.22 Type 2 diabetes mellitus with diabetic chronic kidney disease; L21.9 Seborrheic dermatitis, unspecified; N18.32 Chronic kidney disease, stage 3b; K21.9 Gastro-esophageal reflux disease without esophagitis; Z85.828 Personal history of other malignant neoplasm of skin; Z79.01 Long term (current) use of anticoagulants; Z79.82 Long term (current) use of aspirin; Z79.899 Other long term (current) drug therapy
CPT/HCPCS: 27882; 88307; 88311; A9270 ×2; J0690; J1100; J2250; J2405; J2704 ×2; J3010 ×2; J3490; J7030; 36415; 36430; 71045; 71045-26; 74019; 74019-26; 80048; 80053; 81001; 82947; 83735; 83880; 84100; 85025; 85027; 85610; 86850; 86900; 86901; 86920; 86922; 87070; 87077; 87205; 97110-GP; 97162-GP; 97530-GP; 99232; J0456; J1450; J1815; J1815-GY; J1940; J1956; J2020; J2310; J2543; J7040; J7050; J7120; P9016; P9017

== ENCOUNTER 2023-11-29 05:01 | Emergency (ER) | payer MEDICARE ==
[2023-11-29 05:16] LABS: BASOPHILS ABSOLUTE AUTO 0.06 K/uL (0.00-0.10); BASOPHILS PERCENT AUTO 0.7 % (0.1-1.3); EOSINOPHILS ABSOLUTE AUTO 0.26 K/uL (0.00-0.40); HEMATOCRIT 31.8 % (38.4-49.7); HEMOGLOBIN 10.2 g/dL (12.9-16.9); IMMATURE GRAN ABSOLUTE AUTO 0.04 K/uL (0.00-0.23); IMMATURE GRAN PERCENT AUTO 0.5 % (0.0-0.7); LYMPHOCYTES ABSOLUTE AUTO 1.11 K/uL (0.8-3.3); MEAN CORPUSCULAR HEMOGLOBIN 31.3 pg (31.6-35.5); MEAN CORPUSCULAR HGB CONC 32.1 g/dL (31.6-35.5); MEAN CORPUSCULAR VOLUME 97.5 fL (81.4-99.0); MONOCYTES ABSOLUTE AUTO 0.91 K/uL (0.20-0.90); MONOCYTES PERCENT AUTO 10.6 % (3.3-12.6); NEUTROPHILS ABSOLUTE AUTO 6.19 K/uL (1.0-7.6); NEUTROPHILS PERCENT AUTO 72.2 % (40.0-78.1); PLATELET COUNT,PLT 228 K/uL (130-375); RED BLOOD CELL COUNT 3.26 M/uL (4.14-5.76); WHITE BLOOD CELL COUNT,WBC 8.6 K/uL (3.2-11.0)
[2023-11-29 05:21] LABS: BASE EXCESS VENOUS 1.7 mm/L; BICARBONATE,VENOUS 25.2 mmol/L; METHEMOGLOBIN 0.5 %; O2 SATURATION VENOUS 38.1; OXYHEMOGLOBIN 37.1 %; PCO2 VENOUS 37.2 mm/Hg; PH,VENOUS 7.445 (7.350-7.450); TOTAL HEMOGLOBIN 10.5 g/dL (13.5-18.0)
[2023-11-29 05:23] LABS: PO2 VENOUS 25.7 mm/Hg
[2023-11-29] MEDS ORDERED: Sodium Chloride 0.9% 1,000 ML IV SCH (05:30)
[2023-11-29 05:35] LABS: CALCIUM 9.2 mg/dL (8.5-10.1); CREATININE 1.7 mg/dL (0.8-1.3); EST CRCL DRUG DOSING (CG) 35.9 mL/min
[2023-11-29] MEDS: Sodium Chloride 0.9% 500 ML IV ONE (05:39)
[2023-11-29 05:49] LABS: TROPONIN I HIGH SENSITIVITY 103.9 pg/mL (<=60.3)
[2023-11-29] MEDS: Furosemide 40 MG/4 ML VIAL IVPUSH ONE (06:19)
[2023-11-29 08:44] LABS: INR 2.4; PROTHROMBIN TIME 23.3 sec (9.2-10.6); PTT,PARTIAL THROMBOPLSTIN TIME 45.7 sec (21.8-27.3)
[2023-11-29] MEDS: cefTRIAXone 1 GM in Sodium Chloride 0.9% 50 ML IV SCH (08:44)
[2023-11-29] MEDS: Azithromycin 500 MG in Sodium Chloride 0.9% 250 ML IV SCH (08:44)
[2023-11-29 08:50] LABS: MAGNESIUM 1.8 mg/dL (1.8-2.4); PHOSPHORUS 3.3 mg/dL (2.5-4.9)
[2023-11-29 09:37] LABS: APPEARANCE,URINE SLIGHTLY CLOUDY (CLEAR); BILIRUBIN,URINE NEGATIVE (NEGATIVE); COLOR,URINE YELLOW (YELLOW); GLUCOSE,URINE NEGATIVE (NEGATIVE); KETONES,URINE NEGATIVE (NEGATIVE); LEUKOCYTE ESTERASE,URINE LARGE (NEGATIVE); NITRITE,URINE NEGATIVE (NEGATIVE); OCCULT BLOOD,URINE TRACE-LYSED (NEGATIVE); PH,URINE 5.5 (5.0-8.0); PROTEIN,URINE TRACE mg/dL (NEGATIVE); UROBILINOGEN,URINE 0.2 EU/dL (0.2-1.0)
[2023-11-29 09:51] LABS: EPITHELIAL CELLS,URINE NOT SEEN; RBC,URINE NOT SEEN (0-5); WBC,URINE 40-50 (0-5)
[2023-11-29 09:52] LABS: BACTERIA,URINE MODERATE; MUCUS,URINE NOT SEEN
[2023-11-29 09:53] LABS: AMORPHOUS SEDIMENT,URINE RARE
[2023-11-29 11:23] VITALS: BP 106/63; PULSE 77
== END 2023-11-29 11:27 | disposition other institution (70) ==
LOC: JP.ED 05:01
DX: I13.0 Hypertensive heart and chronic kidney disease with heart failure and stage 1 through stage 4 chronic kidney disease, or unspecified chronic kidney disease (principal); I50.9 Heart failure, unspecified; N18.9 Chronic kidney disease, unspecified; K21.9 Gastro-esophageal reflux disease without esophagitis; E78.00 Pure hypercholesterolemia, unspecified; E11.21 Type 2 diabetes mellitus with diabetic nephropathy; E11.22 Type 2 diabetes mellitus with diabetic chronic kidney disease; Z79.82 Long term (current) use of aspirin; Z79.899 Other long term (current) drug therapy; Z79.84 Long term (current) use of oral hypoglycemic drugs; Z79.4 Long term (current) use of insulin; Z79.01 Long term (current) use of anticoagulants; Z86.16 Personal history of COVID-19
CPT/HCPCS: 36415; 71045; 80048; 81001; 82803; 83735; 83880; 84100; 84145; 84484; 85025; 85610; 85730; 87040; 93005; 96361; 96365; 96367; 96375; 99285; J0456; J0696; J1940; J3490; J7040; J7050

== ENCOUNTER 2023-12-26 09:13 | Emergency (ER) | payer MEDICARE ==
[2023-12-26 09:46] VITALS: BP 121/80; PULSE 83
[2023-12-26] MEDS ORDERED: Sodium Chloride 0.9% 10 ML Syringe FLUSH PRN (10:54)
[2023-12-26 11:22] LABS: BASOPHILS ABSOLUTE AUTO 0.06 K/uL (0.00-0.10); EOSINOPHILS ABSOLUTE AUTO 0.19 K/uL (0.00-0.40); EOSINOPHILS PERCENT AUTO 3.3 % (0.0-5.4); HEMATOCRIT 31.6 % (38.4-49.7); IMMATURE GRAN PERCENT AUTO 0.3 % (0.0-0.7); LYMPHOCYTES PERCENT AUTO 18.9 % (11.4-47.7); MEAN CORPUSCULAR HEMOGLOBIN 30.9 pg (31.6-35.5); MEAN CORPUSCULAR HGB CONC 31.6 g/dL (31.6-35.5); MEAN CORPUSCULAR VOLUME 97.5 fL (81.4-99.0); MONOCYTES ABSOLUTE AUTO 0.76 K/uL (0.20-0.90); MONOCYTES PERCENT AUTO 13.1 % (3.3-12.6); NEUTROPHILS ABSOLUTE AUTO 3.68 K/uL (1.0-7.6); NEUTROPHILS PERCENT AUTO 63.4 % (40.0-78.1); PLATELET COUNT,PLT 180 K/uL (130-375); RED BLOOD CELL COUNT 3.24 M/uL (4.14-5.76); WHITE BLOOD CELL COUNT,WBC 5.8 K/uL (3.2-11.0)
[2023-12-26 11:24] LABS: IMMATURE GRAN ABSOLUTE AUTO 0.02 K/uL (0.00-0.23)
[2023-12-26 11:37] LABS: INR 2.3
[2023-12-26 11:47] LABS: ANION GAP 8.2 mmol/L (5.0-14.0); C-REACTIVE PROTEIN 4.06 mg/dL (<0.50); CALCIUM 9.4 mg/dL (8.5-10.1); CREATININE 1.6 mg/dL (0.8-1.3); EST CRCL DRUG DOSING (CG) 38.15 mL/min; POTASSIUM,K 3.8 mmol/L (3.6-5.2)
== END 2023-12-26 13:28 | disposition home or self-care (01) ==
LOC: JP.ED 09:13
DX: L03.116 Cellulitis of left lower limb (principal); E87.70 Fluid overload, unspecified; E11.22 Type 2 diabetes mellitus with diabetic chronic kidney disease; I12.9 Hypertensive chronic kidney disease with stage 1 through stage 4 chronic kidney disease, or unspecified chronic kidney disease; N18.32 Chronic kidney disease, stage 3b; I48.20 Chronic atrial fibrillation, unspecified; E78.00 Pure hypercholesterolemia, unspecified; K21.9 Gastro-esophageal reflux disease without esophagitis; E11.40 Type 2 diabetes mellitus with diabetic neuropathy, unspecified; Z87.891 Personal history of nicotine dependence; Z79.82 Long term (current) use of aspirin; Z79.01 Long term (current) use of anticoagulants; Z79.84 Long term (current) use of oral hypoglycemic drugs; Z79.4 Long term (current) use of insulin; Z79.899 Other long term (current) drug therapy
CPT/HCPCS: 36415; 71045; 71045-26; 73590-26-LT; 73590-LT; 80048; 83880; 84145; 85025; 85610; 86140; 87040; 99283; 99284